=== PATIENT | male | born 1955 | race Caucasian/White ===

== ENCOUNTER → 2017-09-19 | Outpatient (CLI) | payer BC | LOC: CARD 10:26 | PROVIDERS: ATTEND Internal Medicine Cardiovascular Disease | DX: I34.0 Nonrheumatic mitral (valve) insufficiency (principal) | CPT/HCPCS: 93306 ==

== ENCOUNTER → 2018-02-27 | Outpatient (CLI) | payer BC ==
--- NOTE | 2018-02-27 13:30 | Diagnostic Imaging Report ---
PROCEDURE: MRI left joint lower extremity without contrast. TECHNIQUE: Multiplanar, multisequence MR imaging of the left knee was performed without contrast. COMPARISON: None available. INDICATION: Medial-sided left knee pain. FINDINGS: MENISCI Medial meniscus: There is a complex tear in the posterior horn of the medial meniscus which includes both free-edge radial tear and horizontal cleavage tear. There are no displaced meniscal fragments. The posterior root fibers remain intact, although there is partial extrusion of the body into the medial gutter. Lateral meniscus: Normal. LIGAMENTS ACL: Intact. PCL: Intact. MCL: Intact. LCL: The lateral collateral ligamentous complex is intact. EXTENSOR MECHANISM The extensor mechanism is intact. CARTILAGE Medial compartment: Partial-thickness chondral loss in the weightbearing aspect of the medial compartment. No foci of full-thickness articular cartilage loss. Lateral compartment: The lateral compartment articular cartilage is preserved without high-grade chondromalacia. Patellofemoral compartment: Low-grade partial-thickness fraying of the patellar apex. Remainder of the patellofemoral articular cartilage is well preserved. BONE No fracture, stress fracture or osteonecrosis. SOFT TISSUE Small knee joint effusion. No Barron's cyst. IMPRESSION: 1. Complex tear in the posterior horn of the medial meniscus. 2. Partial-thickness articular cartilage loss/thinning in the medial and patellofemoral compartments. No areas of full-thickness articular cartilage loss. 3. Small knee joint effusion. Dictated by: Dictated on workstation # [id number]
== END ==
LOC: RAD 09:47
PROVIDERS: ATTEND Nurse Practitioner Family
DX: S83.242A Other tear of medial meniscus, current injury, left knee, initial encounter (principal); M94.8X8 Other specified disorders of cartilage, other site
CPT/HCPCS: 73721